=== PATIENT | female | born 1950 | race Caucasian/White ===

== ENCOUNTER → 2016-06-08 | Day surgery (SDC) | payer OTHER ==
--- NOTE | 2016-06-09 14:48 | PATH ---
Surgical Pathology Report Patient Name: NEENA [facility]. Rec. #: [id number] /Age/Gender: 1950 (Age: 66) / F Account: [id number] Location: [facility] Taken: 06/08/2016 Received: 06/08/2016 Reported: 06/09/2016 Physicians: Shameka Lizama M.D. Specimen(s) Received BREAST CORE BIOPSY RIGHT 7:00 2 CMFN Clinical History Nonpalpable lesion Highly suspicious/malignant Final Diagnosis RIGHT BREAST, 7:00 2 CM FROM NIPPLE, ULTRASOUND GUIDED NEEDLE CORE BIOPSY: MODERATELY DIFFERENTIATED INVASIVE DUCTAL CARCINOMA, MEASURING 1.2 CM IN LENGTH MEASURED ON A SLIDE. DUCTAL CARCINOMA IN SITU (DCIS), INTERMEDIATE NUCLEAR GRADE, CRIBRIFORM PATTERN WITH ASSOCIATED CALCIFICATIONS PRESENT. Results of Estrogen Receptor (ER) and Progesterone Receptor (AZ) studies performed at [facility] are as follows: ER (clone [id number] mouse monoclonal antibody by [employer]): >95% nuclear staining with strong intensity (Positive). AZ (clone16 mouse monoclonal antibody by Leica) : ~80% nuclear staining with strong intensity (Positive). Positive and negative controls (internal if applicable) show appropriate results. Formalin fixation and cold ischemic times are within current ASCO/CAP recommendations for ER, AZ and Her2 testing. Comment: This case was discussed with Dr. Montejo covering for Dr. Lizama at 11 AM on June 09, 2016. Assays for HER-2 and Ki67 are pending, and a report will follow. Electronically Signed Korey Rodgers M.D. Addendum Reported: 06/10/2016 Addendum Diagnosis Results of Her2 (IHC) & Ki-67 studies performed at [place], [place] ([id number]) are as follows: Her2 IHC (EP3 from [employer], formerly known as [id number], using Fernandez Polymer Refine detection kit): 1+ NEGATIVE Ki-67: <10% (Low proliferative index) Positive and negative controls (internal if applicable) show appropriate results. Korey Rodgers M.D. Gross Description Received in formalin labeled "right breast 7:00, 2 cmfn," is a 2.4 x 2.0 x 0.3 cm. aggregate of multiple edgar-yellow, irregular to cylindrical portions of fibroadipose tissue. The formalin is filtered and the specimen is entirely submitted in one cassette. Time to formalin fixation: Less than one minute Total formalin fixation time: Approximately 8 hours. 06/08/2016
--- NOTE | 2016-06-09 15:26 | OP ---
DATE OF OPERATION: 06/08/2016 PREOPERATIVE DIAGNOSIS: Two right breast masses. POSTOPERATIVE DIAGNOSIS: 1. Mass, 7 o'clock, 2 cm from the nipple. 2. . PROCEDURE: Right ultrasound-guided core biopsy and right ultrasound-guided cyst aspiration. ANESTHESIA: Local. ATTENDING SURGEON: Alondra Montejo MD ESTIMATED BLOOD LOSS: Minimal. COMPLICATIONS: None. PROCEDURE: Patient was made aware of the risks and benefits of the procedure and consented. She was placed in the supine position and under sterile conditions with 1% lidocaine for local anesthesia, a small leighton was made in the skin. A right breast 7 o'clock 2 cm from the nipple lesion was approached 1st. Using a 10-gauge suction biopsy device via lateral approach under ultrasound guidance, 6 cores were obtained and submitted to Pathology. Likewise, under ultrasound guidance A U-shaped clip was placed into the biopsy region. Well tolerated by patient. Steri-Strip and a sterile bandage was then applied. The right breast 1 o'clock 3 cm from the nipple lesion was then approached under sterile conditions with 1% lidocaine for local anesthesia; however, during the injection of local anesthesia, it became apparent that this was a complex cyst. Therefore under ultrasound guidance with an 18-gauge needle, I was able to aspirate the cyst completely, with no residual nodularity, revealing 2.5 mL of thick green fluid. Since it was benign fluid and was nonbloody, it was not submitted to Pathology. Well tolerated by patient. Sterile dressing applied. I will contact her with the results of the biopsy. ALONDRA MONTEJO M.D. [id number]
== END | disposition home or self-care (01) ==
LOC: FRADUS-SUR 13:17
PROVIDERS: ATTEND Surgery
PROC: 0HBT3ZX Excision of Right Breast, Percutaneous Approach, Diagnostic (ICD-10-PCS; principal; 2016-06-08)
PROC: 0H9T3ZZ Drainage of Right Breast, Percutaneous Approach (ICD-10-PCS; 2016-06-08)
DX: N63 Unspecified lump in breast (principal); C50.511 Malignant neoplasm of lower-outer quadrant of right female breast; D05.11 Intraductal carcinoma in situ of right breast; N60.01 Solitary cyst of right breast
CPT/HCPCS: 19083; 76942-TC; 87899; 88305-TC; 88342-TC; A4648; G0206-TC

== ENCOUNTER 2016-08-13 09:42 | Inpatient (IN) | payer OTHER ==
--- NOTE | 2016-08-10 10:30 | HP ---
Admitting History and Physical - Primary Care Physician PCP: Shameka Lizama - Admission Chief Complaint: Right breast cancer S/P right breast wide excision with positive margins and bakari involvement History of Present Illness: 66 year old postmenapausal female S/PRight partial mastectomy axillary sampling and IOTRT 07/21/2016 Frozen section sentene node was positive. Final pathology showed 1.2 cm Invasive ductal carcinoma exstensive DCIS lymphovascular invasion and positive inferior margin 6+/8 nodes showed metastatic carcinoma. The largest node 1.5 cm with extranodal involvament and intralymphatic tumor emboli. History Source: Patient Limitations to Obtaining History: No Limitations - Past Medical History Cardiovascular: Yes: HTN ENT: Yes: Sinusitis - Past Surgical History Additional Past Surgical History: Right partial mastectomy sentenel node bx ppsitive and positve inferior biopsy 6 +/8 nodes 1.2 cm invasive ductal ca and DCIS exstensive 07/2016 - Smoking History Smoking history: Never smoked Have you smoked in the past 12 months: No - Alcohol/Substance Use Hx Alcohol Use: Yes (WINE) Home Medications - Allergies Allergies/Adverse Reactions: Allergies Allergy/AdvReac Type Severity Reaction Status Date / Time No Known Allergies Allergy Verified 06/30/16 11:46 - Home Medications Home Medications: Ambulatory Orders Multivitamins [Multivit ([facility] Formulary)] 1 tab PO DAILY 07/01/16 Enalapril Maleate [Vasotec] 1 tab PO DAILY 07/21/16 Oxycodone HCl/Acetaminophen [Percocet 5-325 mg Tablet] 1 - 2 tab PO Q6H PRN #30 tab MDD 6 07/21/16 Family Disease History - Family Disease History Family History: Unremarkable Physical Examination Constitutional: Yes: Well Nourished, No Distress Breast(s): Yes: Other (Right breast incsion and axillary incision healing well no erythema or drainage) Problem List - Problems (1) Breast cancer, right Code(s): C50.911 - MALIGNANT NEOPLASM OF UNSP SITE OF RIGHT FEMALE BREAST Qualifiers: Breast location: areola Qualified Code(s): C50.011 - Malignant neoplasm of nipple and areola, right female breast Assessment/Plan Right modified radical mastectomy
[2016-08-11 13:48] VITALS: BMI 33.8
[2016-08-13] MEDS ORDERED: diazePAM 2 MG TABLET PO PRN (12:28)
[2016-08-13] MEDS ORDERED: traMADol HCL 50 MG TABLET PO PRN (12:28)
[2016-08-13] MEDS ORDERED: ACETAMINOPHEN 325 MG TABLET (FP) PO PRN ×2 (12:30→16:00)
[2016-08-13] MEDS ORDERED: ONDANSETRON 4 MG/2 ML VIAL IVPUSH PRN (12:30)
[2016-08-13] MEDS ORDERED: PROMETHAZINE HCL 25 MG/1 ML VIAL IVPUSH PRN (12:30)
[2016-08-13] MEDS ORDERED: DEXTROSE 5%-0.45% SALINE 1,000 ML IV SCH (16:00)
[2016-08-13] MEDS ORDERED: ZOLPIDEM TARTRATE 5 MG TABLET PO PRN (16:00)
[2016-08-13] MEDS ORDERED: ONDANSETRON 4 MG/2 ML VIAL IVPB PRN (16:00)
[2016-08-13] MEDS: LACTATED RINGERS SOLUTION 1,000 ML IV SCH (16:46)
[2016-08-13] MEDS: CEFAZOLIN 1 GM/D5W 50 ML IVPB SCH (21:24)
[2016-08-13] MEDS ORDERED: HEPARIN NA (PORCINE) 5,000 UNITS/ML 1ML VIAL SQ SCH (22:00)
[2016-08-14] MEDS: CEFAZOLIN 1 GM/D5W 50 ML IVPB SCH ×4 (02:27→21:31)
[2016-08-14 08:59] LABS: MCH 28.8 pg (25.7-33.7); MCHC 33.4 g/dl (32.0-36.0); MEAN CELL VOLUME 86.5 fl (80-96); MEAN PLT VOLUME 10.3 fl (7.5-11.1); PLATELET COUNT 168 K/MM3 (134-434); RDW 13.1 % (11.6-15.6); WHITE BLOOD COUNT 12.3 K/mm3 (4.0-10.0)
--- NOTE | 2016-08-14 09:06 | PN ---
Progress Note, Physician Chief Complaint: Right breast cancer S/P Right modified radical mastectomy History of Present Illness: patient is eating, OOB,no pain She received a block - Current Medication List Current Medications: Active Medications Acetaminophen (Tylenol -) 650 mg PO Q6H PRN PRN Reason: FEVER OR PAIN Diazepam (Valium -) 2 mg PO Q12H PRN Enalapril Maleate (Vasotec -) 20 mg PO DAILY [facility] Heparin Sodium (Porcine) (Heparin -) 5,000 unit SQ BID [facility] Lactated Ringer's (Lactated Ringers Solution) 1,000 mls @ 75 mls/hr IV ASDIR SUDHA Last Admin: 08/13/16 16:46 Dose: 200 mls Cefazolin Sodium (Ancef 1 Gm Premixed Ivpb -) 50 mls @ 100 mls/hr IVPB Q6H-IV SUDHA Stop: 08/20/16 20:59 Last Admin: 08/14/16 02:27 Dose: 100 mls/hr Dextrose/Sodium Chloride (D5-1/2ns -) 1,000 mls @ 100 mls/hr IV ASDIR SUDHA Last Admin: 08/13/16 18:30 Dose: Not Given Ondansetron HCl (Zofran Injection) 4 mg IVPB Q6H PRN PRN Reason: NAUSEA AND/OR VOMITING Tramadol HCl (Ultram -) 50 mg PO Q6H PRN PRN Reason: PAIN Zolpidem Tartrate (Ambien -) 5 mg PO HS PRN PRN Reason: Insomnia - Objective Vital Signs: Vital Signs Temperature 99.0 F 08/14/16 06:00 Pulse Rate 74 08/14/16 06:00 Respiratory Rate 18 08/14/16 06:00 Blood Pressure 114/60 08/14/16 06:00 O2 Sat by Pulse Oximetry (%) 94 L 08/14/16 06:00 Constitutional: Yes: Well Nourished, No Distress Breast(s): Yes: Other (Right chest wall incision intact, steristrips in place, QUYEN drain functionins dressings changed) Problem List - Problems (1) Breast cancer, right Code(s): C50.911 - MALIGNANT NEOPLASM OF UNSP SITE OF RIGHT FEMALE BREAST Qualifiers: Breast location: areola Assessment/Plan spirometry OOB with assistance Iv antibiotics prepare for discharge this afternoon or tomorrow
[2016-08-14] MEDS: HEPARIN NA (PORCINE) 5,000 UNITS/ML 1ML VIAL SQ SCH ×2 (09:13→21:31)
[2016-08-14] MEDS: ENALAPRIL MALEATE 10 MG TABLET (FP) PO SCH (09:13)
--- NOTE | 2016-08-14 10:04 | OP ---
DATE OF OPERATION: 08/13/2016 PREOPERATIVE DIAGNOSIS: Right breast cancer. POSTOPERATIVE DIAGNOSIS: Right modified radical mastectomy. SURGEON: Toby Lizama MD HOT METAL CHARGER: PATSY Skelton ANESTHESIA: General. ANESTHESIOLOGIST: Dr. Hodge. SPECIMENS: 1. Right breast and axillary contents. 2. Inferior margin. DRAINS: Two No. 10 round Alcon drains. ESTIMATED BLOOD LOSS: Minimal. INDICATION FOR PROCEDURE: The patient is a 66-year-old white female who found a lump in her breast in January 2016. Ultrasound-guided biopsy showed an ER/CO positive, HER2 negative, moderately differentiated, invasive ductal cancer. She underwent right partial mastectomy, axillary sampling, and intraoperative radiation therapy on July 21, 2016. Pathology showed a 1.2-cm invasive cancer, extensive DCIS, and a positive inferior margin as well as 6 positive lymph nodes. She was offered re-excision versus mastectomy and opted for a total mastectomy. She will also be undergoing additional surgery in the axillary region to clear out remaining lymph nodes. The procedure, risks, and complications were discussed with her prior to surgery. She opted to not have reconstruction. DESCRIPTION OF PROCEDURE: The patient was identified in the holding area. Informed consent was obtained. The right breast was identified with a marker. She was taken to the operating room and placed on the operating room table in a supine position. Sequential compression devices were placed on both legs. She received antibiotics prior to surgery. The right breast was prepped and draped in the usual fashion. A time-out was performed. Examination of the breast showed healing incisions in the right axilla and the right areola. An elliptical incision was made around the nipple areolar complex. The incision was deepened using electrocautery. A superior skin flap was raised towards the clavicle. Medially the dissection continued towards the border with the sternum. Inferiorly, the dissection continued to the junction with the abdominal musculature. Laterally, the dissection continued towards the axilla. The breast was then removed along with the underlying pectoralis major fascia. The axillary dissection was performed in continuity. The tissue at the edge of the pectoralis major was cleared using electrocautery. The tissue between the pectoralis major and minor muscles was included with the dissection. The tissue along the chest wall was mobilized using electrocautery and included with the specimen. Superiorly, the tissue inferior to the axillary vein was included with the dissection. There was scarring in this area from the previous sentinel node biopsy. The tissue was divided, and the specimen was removed and labeled as right breast and axillary contents. The specimen was marked with a silk suture for pathology, a long suture for the lateral margin and a short suture for the superior margin. The specimen was placed in formalin. Examination of the operative field showed some thickness in the inferior medial flap. Additional breast tissue was taken from this area and labeled with a suture at the final margin. It was included with the main specimen. The wound was irrigated and inspected for hemostasis. Some bleeding was noted in the muscle bed, which was controlled with electrocautery. Two No. 10 round Alcon drains were then placed through separate stab wounds and secured using 3-0 nylon. One was placed under the skin flap and the other along the lower chest wall. The incision was then closed. The dermis was closed using interrupted sutures of 3-0 Vicryl. The skin was closed with a running subcuticular closure of 4-0 Monocryl. The wound was cleaned and dressed with a sterile gauze dressing. The surgical bra was applied. The bowls were attached to the Alcon drains. The patient was then awakened and taken to the recovery area in satisfactory condition. She tolerated the procedure well. At the end of the procedure all sponge, lap, and instrument counts were correct. TOBY LIZAMA M.D. [id number] MTDD
[2016-08-14] MEDS: LACTATED RINGERS SOLUTION 1,000 ML IV SCH (13:57)
--- NOTE | 2016-08-14 14:48 | PN ---
Progress Note (short form) - Note Progress Note: pod #1 s/p right mastestomy with PEC1 and PEC 2block pt with very min pain, no narcotic required only using acetominphen no nausea avss plan con't with orals for Dc home in AM
[2016-08-15] MEDS: CEFAZOLIN 1 GM/D5W 50 ML IVPB SCH ×2 (03:46→10:21)
[2016-08-15 06:02] VITALS: BP 131/79; PULSE 59; TEMP 98.8
[2016-08-15] MEDS: HEPARIN NA (PORCINE) 5,000 UNITS/ML 1ML VIAL SQ SCH (10:21)
[2016-08-15] MEDS: ENALAPRIL MALEATE 10 MG TABLET (FP) PO SCH (10:21)
--- NOTE | 2016-08-19 15:32 | PATH ---
Surgical Pathology Report Patient Name: NEENA HARRIS [facility]. Rec. #: [id number] /Age/Gender: 1950 (Age: 66) / F Account: [id number] Location: [facility] Taken: 08/13/2016 Received: 08/13/2016 Reported: 08/19/2016 Physicians: Shameka Lizama M.D. Specimen(s) Received A: RIGHT BREAST WITH AXILLARY CONTENTS B: RIGHT BREAST INFERIOR Clinical History Invasive Final Diagnosis A. BREAST WITH AXILLARY CONTENTS, RIGHT, MASTECTOMY: RESIDUAL INVASIVE DUCTAL CARCINOMA, WELL DIFFERENTIATED, 0.6 CM FOCUS (SEE COMMENT). RESIDUAL DUCTAL CARCINOMA IN SITU (DCIS), INTERMEDIATE NUCLEAR GRADE, CRIBRIFORM AND SOLID PATTERN WITH CENTRAL NECROSIS AND CALCIFICATIONS. RESIDUAL DCIS IS ASSOCIATED WITH INVASIVE CARCINOMA AND IS PRESENT FOCALLY AWAY FROM IT, WITH FOCAL NIPPLE DUCT INVOLVEMENT. ASSOCIATED EXTENSIVE PRIOR SURGICAL SITE CHANGES. SURGICAL RESECTION MARGINS: NEGATIVE FOR INVASIVE CARCINOMA OR DCIS; BOTH ANTERIOR SOFT TISSUE AND DEEP MARGIN ARE >1.0 CM AWAY FROM RESIDUAL INVASIVE CARCINOMA AND DCIS. NIPPLE: NOT INVOLVED BY DCIS. SKIN: NOT INVOLVED BY CARCINOMA. SKELETAL MUSCLE: NOT DEFINITIVELY IDENTIFIED. SURROUNDING BREAST TISSUE: FIBROCYSTIC CHANGE WITH FOCAL USUAL DUCT HYPERPLASIA, ADENOSIS, DUCT DILATATION, APOCRINE METAPLASIA, CYSTS FORMATION AND STROMAL FIBROSIS. ONE LYMPH NODE NEGATIVE FOR CARCINOMA (0/1). PATHOLOGIC STAGING: SEE COMMENT. RECEPTOR STATUS: SEE COMMENT. B. BREAST, RIGHT, INFERIOR MARGIN, EXCISION: BENIGN FATTY BREAST TISSUE. NEGATIVE FOR INVASIVE CARCINOMA OR DCIS. Comment: Prior excision specimen ([id number]) demonstrated well differentiated invasive ductal carcinoma, 1.2 cm, and intermediate nuclear grade DCIS extending to the inferior margin of resection along with 6 positive lymph nodes. The current specimen demonstrates focal residual invasive carcinoma (0.6 cm) and residual DCIS. Immunohistochemical stains for p63 and SMM-HC performed and interpreted at [facility] on block A17 show a loss of myoepithelial cells in the focus of invasive carcinoma. The pathologic staging determined in the prior excision specimen remains the same (pT1c pN2a). Receptor status determined on the initial biopsy ([id number]) is as follows: Results of Estrogen Receptor (ER) and Progesterone Receptor (MN) studies performed on the initial biopsy ([id number]) at [facility]: ER (clone [id number] mouse monoclonal antibody by [employer]): >95% nuclear staining with strong intensity (Positive). MN (clone16 mouse monoclonal antibody by [employer]): ~80% nuclear staining with strong intensity (Positive). Her2 (IHC) & Ki-67 studies performed on the initial biopsy ([id number]) at [place], [place] ([id number]): Her2 IHC (EP3 from [employer], formerly known as [id number], using Fernandez Polymer Refine detection kit): 1+ (Negative) Ki-67: <10% (Low proliferation index) Electronically Signed Fareed Caban M.D. Gross Description A. Received in formalin, labeled "right breast with axillary contents" is a 1083 gram, 20.5 x 18.5 x 5.5 cm right mastectomy specimen with a short suture marking the superior aspect and a long suture marking the lateral aspect of the specimen, per the surgeon. There is an 18.5 x 11.0 cm edgar, elliptical portion of skin with a 1.2 cm in diameter nipple present. The deep margin is inked black and the anterior soft tissue margin is inked blue. The specimen is serially sectioned from lateral to medial. Sectioning reveals a 7.0 x 7.0 x 5.3 cm previous biopsy cavity spanning the lower inner quadrant (LIQ) and the lower outer quadrant (LOQ). The cavity is surrounded by abundant dense, white, focally firm fibrous tissue. No definite remaining mass is identified. The remaining breast parenchyma displays foci of white fibrous tissue. Sectioning of the axillary fat reveals multiple possible lymph nodes. Pecan Sheller sections are submitted in 31 cassettes as follows: 1-serially sectioned nipple; 2-subareolar shave; 9-0-wospcuks biopsy cavity from LIQ with surrounding fibrous tissue; 6-uninvolved LIQ tissue; 1-61-deybznxr biopsy cavity from LOQ with surrounding fibrous tissue; 12-uninvolved LOQ tissue; 13-14-upper inner quadrant tissue; 15-16-upper outer quadrant tissue; 21-61-nclebjadybay tissue; 19-anterior soft tissue margin; 20-skin; 21-deep margin. 22-one whole bisected lymph node; 23-26-one whole serially sectioned lymph node; 27-28-one whole bisected possible lymph node; 99-38-gaxqusek whole possible lymph nodes each, 31-38 fatty tissue with possible lymph nodes. Time to formalin fixation: 28 minutes Total formalin fixation time: Approximately 27 hours. B. Received in formalin labeled "right breast inferior margin" is a 9.0 x 4.0 x 3.4 cm irregular portion of fibroadipose tissue with a suture marking the final margin, per the surgeon. The final margin is inked green and the specimen is serially sectioned. No discrete masses are identified. Pecan Sheller sections are submitted in 9 cassettes. 08/14/2016 [facility]08/14/2016
== END 2016-08-15 11:00 | disposition home or self-care (01) | DRG 583 ==
LOC: FM/S 09:42
PROVIDERS: ADMIT Surgery; ATTEND Surgery
PROC: 0HTT0ZZ Resection of Right Breast, Open Approach (ICD-10-PCS; principal; 2016-08-13 13:36)
DX: C50.011 Malignant neoplasm of nipple and areola, right female breast (principal); I10 Essential (primary) hypertension; E11.9 Type 2 diabetes mellitus without complications; J32.8 Other chronic sinusitis
CPT/HCPCS: 36415; 85027; 88307-TC; 88309-TC; 88341-TC; 94010; 94760; J1644